=== PATIENT | male | born 1955 | race Caucasian/White ===

== ENCOUNTER 2016-06-07 22:44 | Emergency (ER) | payer BC ==
[~2016-06-07] VITALS: Ht 175.3 cm; Wt 99.8 kg
--- NOTE | 2016-06-07 23:50 | RAD ---
PQRS STATEMENT One or more of the following individualized dose reduction techniques were utilized for this study: 1.Automated exposure control 2.Adjustment of the mA and/or kV according to patient size 3.Use of iterative reconstruction technique CT HEAD Indication: FALL WITH LOC, AFTER HEAD INJURY, PAIN, HX DENIES, NO PRIORS Reason: fall with LOC after head injury / Spl. Instructions: / History: COMPARISON: None TECHNIQUE: 5 mm contiguous axial images were obtained from the skull base to the vertex in both bone and soft tissue algorithm. FINDINGS: No abnormal attenuation within the brain parenchyma. No evidence of acute intracranial hemorrhage. No extra-axial fluid collections. No mass effect or midline shift.Ventricular size is appropriate. Basal cisterns are patent. No fractures identified. Globes and orbits are within normal limits. Paranasal sinuses and mastoid air cells are clear. IMPRESSION: - No acute intracranial abnormality. PQRS STATEMENT One or more of the following individualized dose reduction techniques were utilized for this study: 1.Automated exposure control 2.Adjustment of the mA and/or kV according to patient size 3.Use of iterative reconstruction technique CT cervical spine Indication:FALL WITH LOC, AFTER HEAD INJURY, PAIN, HX DENIES, NO PRIORS Reason: fall with LOC after head injury / Spl. Instructions: / History: Comparison: None Technique: Multiple contiguous axial images were obtained through the cervical spine. Coronal and sagittal reformations were created. Findings: Occipital condyles articulate normally with the lateral masses of C1. The odontoid is intact. There is straightening of the cervical lordosis. No significant anterolisthesis or retrolisthesis. Vertebral body heights are maintained. No perching of the facets. There is multilevel degenerative disc height loss greatest at C5-6 and C6-7 Impression: - Negative for cervical spine fracture. - Multilevel degenerative disc height loss greatest at C5-6 and C6-7. Electronically signed by: Troy Luna (Jun 07, 2016 23:48:36)
--- NOTE | 2016-06-08 00:30 | PHYS DOC ---
Past Medical History Past Medical History: High Cholesterol, Hypertension Past Surgical History: Other Additional Past Surgical Histo: R ACHILES TENDON, COLONOSCOPY Alcohol Use: Heavy Drug Use: None Adult General Chief Complaint Chief Complaint: ALCOHOL INTOXICATION HPI HPI Patient is a 60 year old male who presents with and daughter for evaluation of head injury after fall down 5 stairs while intoxicated. He drinks multiple drinks per night. Family has tried to get him to cut back, but he is not interested. He notes minimal left face pain from injury, but denies any other complaints. and daughter witnessed incident and noted loss of consciousness. Review of Systems Review of Systems Constitutional: Denies fever or chills [] Eyes: Denies change in visual acuity, redness, or eye pain [] HENT: Denies nasal congestion or sore throat [] Respiratory: Denies cough or shortness of breath [] Cardiovascular: No additional information not addressed in HPI [] GI: Denies abdominal pain, nausea, vomiting, bloody stools or diarrhea [] : Denies dysuria or hematuria [] Musculoskeletal: Denies back pain or joint pain [] Integument: Denies rash or skin lesions [] Neurologic: Denies headache, focal weakness or sensory changes [] Endocrine: Denies polyuria or polydipsia [] Allergies Allergies Allergies Coded Allergies Type Severity Reaction Last Updated Verified No Known Drug Allergies 04/27/16 No Physical Exam Physical Exam Constitutional: Well developed, well nourished, no acute distress, non-toxic appearance. Smells of alcohol [] HENT: Normocephalic, bilateral external ears normal, oropharynx moist, no oral exudates, nose normal. Has nonbleeding abrasion to left lateral zygoma with no visual or palpable stepoff deformity. [] Eyes: PERRLA, EOMI, conjunctiva normal, no discharge. [] Neck: Normal range of motion, no tenderness, supple, no stridor. [] Cardiovascular:Heart rate regular rhythm [] Lungs & Thorax: Bilateral breath sounds clear to auscultation [] Abdomen: Bowel sounds normal, soft, no tenderness. [] Skin: Warm, dry, no erythema, no rash. [] Back: No tenderness, no CVA tenderness. [] Extremities: No tenderness, ROM intact, no edema. [] Neurologic: Alert and oriented X 3, normal motor function, normal sensory function, no focal deficits noted, cranial nerves II through XII intact. [] Psychologic: Affect normal, judgement impaired by intoxication, mood normal. [] Current Patient Data Vital Signs Vital Signs Date Time Temp Pulse Resp B/P Pulse Ox O2 Delivery O2 Flow Rate FiO2 06/07/16 23:03 97.8 74 18 147/83 94 Room Air 97.8 Lab Values Laboratory Tests Test 06/07/16 23:15 Glucose (Fingerstick) 101mg/dL (70-99) H Radiology/Procedures Radiology/Procedures CT head and cervical spine without contrast IMPRESSION: - No acute intracranial abnormality. Impression: - Negative for cervical spine fracture. - Multilevel degenerative disc height loss greatest at C5-6 and C6-7. Electronically signed by: Troy Luna (Jun 07, 2016 23:48:36) Course & Med Decision Making Course & Med Decision Making Pertinent Labs and Imaging studies reviewed. (See chart for details) Workup is unremarkable. He has sobered appropriately. C-collar was removed by me and he has normal range of motion of his C-spine with no symptoms of pain/ numbness/tingling/weakness. He is ambulatory with steady gait and like to take him home. He has no new complaints. Encouraged alcohol cessation. Return precautions given. He and understand and agree with plan. Dragon Disclaimer Dragon Disclaimer This electronic medical record was generated, in whole or in part, using a voice recognition dictation system. Departure Departure Impression: Primary Impression: Acute alcohol intoxication Additional Impressions: Closed head injury Abrasion of face Disposition: 01 HOME, SELF-CARE Condition: STABLE Referrals: SHARIF ALEJANDRA MD (PCP) Patient Instructions: Alcohol and Drug Addiction, Finding Treatment, Head Injury, Adult, [id number] Additional Instructions: Decrease your alcohol intake. Follow-up with your primary care doctor or a substance abuse facility for help with this. Return for any concerns. Problem Qualifiers Primary Impression: Acute alcohol intoxication Complication of substance-induced condition: with delirium Qualified Code: F10.121 - Alcohol abuse with intoxication delirium Additional Impressions: Closed head injury Encounter type: initial encounter Qualified Code: S09.90XA - Unspecified injury of head, initial encounter Abrasion of face Encounter type: initial encounter Qualified Code: S00.81XA - Abrasion of other part of head, initial encounter Oziel PERAZA MD Jun 08, 2016 00:29
[2016-06-08 00:50] VITALS: BP 155/88
== END 2016-06-08 01:03 | disposition home or self-care (01) ==
LOC: ER 22:44
DX: S00.81XA Abrasion of other part of head, initial encounter (principal); E78.00 Pure hypercholesterolemia, unspecified; I10 Essential (primary) hypertension; F10.129 Alcohol abuse with intoxication, unspecified; W10.8XXA Fall (on) (from) other stairs and steps, initial encounter; Y93.89 Activity, other specified; Y99.8 Other external cause status; Y92.89 Other specified places as the place of occurrence of the external cause
CPT/HCPCS: 70450; 72125; 82947; 99284-25